=== PATIENT | male | born 1960 | race Caucasian/White ===

== ENCOUNTER 2018-11-01 08:29 | Day surgery (SDC) | payer OTHER ==
[2018-11-01 09:11] VITALS: BMI 28.8
[2018-11-01 10:54] VITALS: TEMP 97.4
[2018-11-01 11:13] VITALS: PULSE 64
[2018-11-01 11:29] VITALS: BP 104/61
--- NOTE | 2018-11-02 16:02 | PATH ---
Surgical Pathology Report Patient Name: HARRISON ALLEN [facility]. Rec. #: [id number] /Age/Gender: 1960 (Age: 58) / M Account: [id number] Location: U-ENDOSCOPY Taken: 11/01/2018 Received: 11/01/2018 Reported: 11/02/2018 Physicians: Serjio Peterson M.D. Specimen(s) Received A: RECTAL POLYPS B: BX DESCENDING COLON POLYP Clinical History Adenoma surveillance Postoperative diagnosis: Colon polyps, diverticulosis Final Diagnosis A. RECTAL POLYPS, BIOPSY: TUBULAR ADENOMA(S). HYPERPLASTIC POLYP. B. DESCENDING COLON, POLYP, BIOPSY: TUBULAR ADENOMA. Electronically Signed Trisha Davis M.D. Gross Description A. Received in formalin, labeled "biopsy rectal polyps" are 4 lou, irregular portions of soft tissue ranging from 0.1-0.4 cm. in greatest dimension. The specimens are submitted in toto in one cassette. B. Received in formalin, labeled "biopsy descending colon polyp" are 2 lou, irregular portions of soft tissue measuring 0.3 and 0.4 cm. in greatest dimension. The specimens are submitted in toto in one cassette. /11/01/2018 saudi11/01/2018
== END 2018-11-01 11:41 | disposition home or self-care (01) ==
LOC: JASU-ENDO 08:29
PROVIDERS: ATTEND Internal Medicine Gastroenterology
PROC: 0DBP8ZX Excision of Rectum, Via Natural or Artificial Opening Endoscopic, Diagnostic (ICD-10-PCS; 2018-11-01)
PROC: 0DBM8ZX Excision of Descending Colon, Via Natural or Artificial Opening Endoscopic, Diagnostic (ICD-10-PCS; principal; 2018-11-01 09:30)
DX: Z12.11 Encounter for screening for malignant neoplasm of colon (principal); K62.1 Rectal polyp; D12.4 Benign neoplasm of descending colon; K57.30 Diverticulosis of large intestine without perforation or abscess without bleeding
CPT/HCPCS: 88305-TC

== ENCOUNTER 2021-11-18 04:48 | Day surgery (SDC) | payer OTHER ==
[2021-11-06 15:54] VITALS: BMI 29.2
[2021-11-18 09:12] VITALS: TEMP 97.1
[2021-11-18 09:46] VITALS: BP 116/80; PULSE 82
== END 2021-11-18 10:01 | disposition home or self-care (01) ==
LOC: JASU-ENDO 04:48
PROVIDERS: ATTEND Internal Medicine Gastroenterology
PROC: 0DBN8ZX Excision of Sigmoid Colon, Via Natural or Artificial Opening Endoscopic, Diagnostic (ICD-10-PCS; 2021-11-18)
PROC: 0DBL8ZX Excision of Transverse Colon, Via Natural or Artificial Opening Endoscopic, Diagnostic (ICD-10-PCS; principal; 2021-11-18 08:12)
DX: Z12.11 Encounter for screening for malignant neoplasm of colon (principal); D12.5 Benign neoplasm of sigmoid colon; D12.3 Benign neoplasm of transverse colon; K64.8 Other hemorrhoids; K57.30 Diverticulosis of large intestine without perforation or abscess without bleeding
CPT/HCPCS: 88305-TC